=== PATIENT | female | born 1990 | race Caucasian/White ===

== ENCOUNTER → 2021-05-14 23:30 | Observation (INO) ==
[2021-05-14 21:07] LABS: Bilirubin,Urine Negative (Negative); Blood,Urine Negative (Negative); Clarity,Urine Clear (Clear); Color,Urine Yellow (Yellow); Glucose,Urine (UA) Normal (Normal); Ketones,Urine 20 mg/dL (Negative); Leukocyte Esterase,Urine Negative (Negative); Nitrite,Urine Negative (Negative); Protein,Urine Trace mg/dL (Neg-Trace); Specific Gravity,Urine 1.022 (1.010-1.025); Urobilinogen,Urine Normal (Normal)
== END | disposition home or self-care (01) ==
LOC: 1NENULAB
PROVIDERS: ADMIT Obstetrics & Gynecology; ATTEND Obstetrics & Gynecology

== ENCOUNTER 2021-05-28 10:12 | Inpatient (IN) ==
[2021-05-28] MEDS ORDERED: Naloxone 0.4 MG/ML INJ IVP PRN (10:35)
[2021-05-28] MEDS ORDERED: Metoclopramide 10 MG/2 ML VIAL IVP PRN ×2 (10:35→16:57)
[2021-05-28] MEDS ORDERED: Famotidine 20 MG/2 ML VIAL IVP PRN (10:35)
[2021-05-28] MEDS ORDERED: Ringers Solution, Lactated 1,000 ML IVC SCH ×2 (10:45→16:57)
[2021-05-28 11:20] LABS: Basophils % 0.5 %; Eosinophils # 0.1 K/mcL (0.0-0.6); Eosinophils % 1.1 %; Hematocrit 32.3 % (35.3-44.9); Hemoglobin 10.7 g/dL (11.5-15.4); Immature Granulocytes % 1.1 % (0-4); Lymphocytes # 2.1 K/mcL (0.6-4.6); Lymphocytes % 24.9 %; Mean Corpuscular HGB Conc 33.1 g/dL (31.6-35.5); Mean Corpuscular Hemoglobin 30.3 pg (28.0-33.3); Mean Corpuscular Volume 91.5 fL (83.0-100.0); Mean Platelet Volume 10.4 fL (9.4-12.4); Monocytes # 0.7 K/mcL (0.0-1.3); Monocytes % 8.4 %; Neutrophils # 5.4 K/mcL (1.6-8.9); Nucleated Red Blood Cells 0.2 /100 WBC (0); Platelet Count 277 K/mcL (140-400); Red Blood Count 3.53 M/mcL (3.82-4.97); Red Cell Distribution Width 12.8 % (11.5-14.5); White Blood Count 8.4 K/mcL (4.3-11.1)
[2021-05-28] MEDS ORDERED: Ondansetron 4 MG/2 ML VIAL IVP PRN ×2 (11:21→16:57)
[2021-05-28] MEDS ORDERED: *HR* HYDROmorphone PF 0.5 MG/0.5 ML SYRINGE IVP PRN (11:21)
[2021-05-28] MEDS ORDERED: *HR* OxyCODONE Immed Rel 5 MG TABLET PO PRN (11:21)
[2021-05-28] MEDS ORDERED: EPHEDrine 50 MG/ML VIAL ONE (11:35)
[2021-05-28] MEDS ORDERED: *HR* Morphine Sulfate/PF 10 MG/10 ML AMPUL ONE (11:35)
[2021-05-28] MEDS ORDERED: Ondansetron 4 MG/2 ML VIAL ONE (11:35)
[2021-05-28] MEDS ORDERED: *HR* FentaNYL (PF) 100 MCG/2 ML VIAL ONE (11:35)
[2021-05-28] MEDS ORDERED: Acetaminophen IV 1,000 MG/100 ML BAG IVPB ONE (11:39)
[2021-05-28] MEDS ORDERED: Ketorolac 30 MG/ML VIAL ONE (11:39)
[2021-05-28] MEDS ORDERED: CeFAZolin 2,000MG/50ML DUPLEX 2,000 MG/50 ML BAG IVPB ONE (12:00)
[2021-05-28 12:15] LABS: Amphetamine Screen,Urine Negative ng/mL (Cutoff=1000); Barbiturate Screen,Urine Negative ng/mL (Cutoff=200); Benzodiazepines Screen,Urine Negative ng/mL (Cutoff=200); Cannabinoid Screen,Urine Negative ng/mL (Cutoff = 50); Cocaine Screen,Urine Negative ng/mL (Cutoff= 300); Opiate Screen,Urine Negative ng/mL (Cutoff=300); Phencyclidine Screen,Urine Negative ng/mL (Cutoff=25)
[2021-05-28] MEDS ORDERED: Lidocaine -MPF 2% 5 ML VIAL ONE (12:32)
[2021-05-28] MEDS ORDERED: Ringers Solution, Lactated 1,000 ML ONE (13:05)
[2021-05-28] MEDS ORDERED: *HR* LORazepam 2 MG/ML VIAL IVP ONE ×2 (15:07→18:29)
[2021-05-28] MEDS ORDERED: Rho Immune Globulin 1,500 UNIT SYRINGE IM ONE (16:57)
[2021-05-28] MEDS ORDERED: Oxytocin 20 units/ LR 1000 mL 20 UNIT/1,000 ML BAG IVC SCH (16:57)
[2021-05-28] MEDS ORDERED: *HR* OxyCODONE/APAP 10/325 TABLET PO PRN (16:57)
[2021-05-28] MEDS ORDERED: Simethicone 80 MG TAB.CHEW PO PRN (16:57)
[2021-05-29] MEDS: Ibuprofen 600 MG TABLET PO SCH ×4 (00:46→20:45)
[2021-05-29 03:57] LABS: Basophils % 0.2 %; Hematocrit 28.6 % (35.3-44.9); Hemoglobin 9.7 g/dL (11.5-15.4); Immature Granulocytes % 0.6 % (0-4); Lymphocytes # 2.2 K/mcL (0.6-4.6); Lymphocytes % 13.2 %; Mean Corpuscular HGB Conc 33.9 g/dL (31.6-35.5); Mean Corpuscular Hemoglobin 31.2 pg (28.0-33.3); Mean Platelet Volume 10.4 fL (9.4-12.4); Monocytes # 1.4 K/mcL (0.0-1.3); Neutrophils # 13.3 K/mcL (1.6-8.9); Platelet Count 273 K/mcL (140-400); Red Blood Count 3.11 M/mcL (3.82-4.97); Red Cell Distribution Width 12.6 % (11.5-14.5)
[2021-05-29] MEDS: Prenatal Vit/FA 1 EACH TABLET PO SCH (08:26)
[2021-05-29] MEDS ORDERED: Rho Immune Globulin 1,500 UNIT SYRINGE IM ONE (18:34)
[2021-05-29] MEDS: *HR* OxyCODONE/APAP 5/325 TABLET PO PRN (19:03)
[2021-05-30] MEDS: *HR* OxyCODONE/APAP 5/325 TABLET PO PRN ×2 (00:15→12:12)
[2021-05-30] MEDS: Ibuprofen 600 MG TABLET PO SCH ×2 (06:30→12:13)
[2021-05-30 07:32] VITALS: BP 115/79; PULSE 76; TEMP 97.9; O2SAT 97
[2021-05-30] MEDS: Prenatal Vit/FA 1 EACH TABLET PO SCH (08:03)
== END 2021-05-30 13:57 | disposition home or self-care (01) | DRG 785 ==
LOC: SAMDAY 10:12 → 1NENULAB 10:14 → 1NENUOBS 16:52
PROVIDERS: ADMIT Obstetrics & Gynecology; ATTEND Obstetrics & Gynecology